=== PATIENT | male | born 1960 | race Caucasian/White ===

== ENCOUNTER 2023-04-17 06:21 | Day surgery (SDC) | payer OTHER ==
[~2023-04-17] VITALS: Ht 180.3 cm; Wt 140.6 kg
[2023-04-17] MEDS ORDERED: diphenhydrAMINE 50 MG/ML VIAL ONE (07:29)
[2023-04-17] MEDS ORDERED: fentaNYL citrate 0.05 MG/ML VIAL ONE (07:30)
[2023-04-17] MEDS ORDERED: LIDOCAINE 2% 100 MG/5 ML UJET TP ONE (07:30)
[2023-04-17] MEDS ORDERED: MIDAZOLAM 5 MG/5 ML VIAL ONE (07:30)
[2023-04-17] MEDS ORDERED: MIDAZOLAM 2 MG/2 ML VIAL IV ONE (08:15)
[2023-04-17] MEDS ORDERED: fentaNYL citrate 0.05 MG/ML VIAL IVP ONE (08:15)
[2023-04-17] MEDS ORDERED: diphenhydrAMINE 50 MG/ML VIAL IVP ONE (08:15)
== END 2023-04-17 08:36 | disposition home or self-care (01) ==
LOC: MOR 06:21 → MMU 06:44 → MOR 08:36
PROVIDERS: ATTEND Internal Medicine Gastroenterology
DX: Z12.11 Encounter for screening for malignant neoplasm of colon (principal); K57.92 Diverticulitis of intestine, part unspecified, without perforation or abscess without bleeding; Z80.0 Family history of malignant neoplasm of digestive organs; I10 Essential (primary) hypertension; E11.9 Type 2 diabetes mellitus without complications; E66.9 Obesity, unspecified; Z68.41 Body mass index [BMI] 40.0-44.9, adult; M19.90 Unspecified osteoarthritis, unspecified site; Z79.84 Long term (current) use of oral hypoglycemic drugs; Z79.899 Other long term (current) drug therapy
CPT/HCPCS: 45378; 82948; J1200; J2250; J3010

== ENCOUNTER 2023-08-20 11:27 | Emergency (ER) | payer OTHER ==
[~2023-08-20] VITALS: Ht 180.3 cm; Wt 155.6 kg
[~2023-08-20 11:27] MED LIST: CIPR500T4 PO; LOSA25TA43 PO; METF-346 PO; METR-435 PO; TRAM50TA3 PO
[2023-08-20 11:47] VITALS: BP 157/101; PULSE 90; RESP 20; TEMP 97.3; O2SAT 99
[2023-08-20] MEDS ORDERED: KETOROLAC 30 MG/ML VIAL IM ONE (12:20)
[2023-08-20] MEDS ORDERED: IBUP-2213 PO (13:05)
== END 2023-08-20 13:15 | disposition home or self-care (01) ==
LOC: MED 11:27
DX: S86.911A Strain of unspecified muscle(s) and tendon(s) at lower leg level, right leg, initial encounter (principal); Z79.899 Other long term (current) drug therapy; Z79.1 Long term (current) use of non-steroidal anti-inflammatories (NSAID); Z79.2 Long term (current) use of antibiotics; X58.XXXA Exposure to other specified factors, initial encounter; Y92.89 Other specified places as the place of occurrence of the external cause; Y93.89 Activity, other specified; Y99.8 Other external cause status
CPT/HCPCS: 29515; 73590; 96372; 99283; J1885

== ENCOUNTER 2023-10-15 07:13 | Emergency (ER) | payer OTHER ==
[~2023-10-15] VITALS: Ht 177.8 cm; Wt 136.1 kg
[~2023-10-15 07:13] MED LIST changes: +IBUP-2213 PO
[2023-10-15 07:20] VITALS: BP 133/75; PULSE 101; RESP 18; TEMP 98.1; O2SAT 99
[2023-10-15] MEDS: ONDANSETRON 4 MG/2 ML VIAL IVP ONE (07:51)
[2023-10-15] MEDS: NACL 0.9% 1,000 ML IV ONE (07:53)
[2023-10-15 07:57] LABS: BASOPHILS # (AUTO) 0.1 K/uL (0.00-0.22); BASOPHILS % (AUTO) 0.8 % (0.0-2.0); EOSINOPHILS # (AUTO) 0.3 K/uL (0-0.4); EOSINOPHILS % (AUTO) 3.6 % (0.0-4.0); HEMATOCRIT 40.1 % (36-52); HEMOGLOBIN 13.7 g/dL (12.0-18.0); LYMPHOCYTES # (AUTO) 3.3 K/uL (2.0-11.5); LYMPHOCYTES % (AUTO) 34.3 % (20.5-51.1); MEAN CORPUSCULAR HEMOGLOBIN 31 pg (27-31); MEAN CORPUSCULAR HGB CONC 34 g/dL (33-37); MEAN CORPUSCULAR VOLUME 91.8 fL (80-94); MONOCYTES # (AUTO) 1.2 K/uL (0.8-1.0); MONOCYTES % (AUTO) 12.3 % (1.7-9.3); NEUTROPHILS # (AUTO) 4.7 K/uL (1.8-7.7); PLATELET COUNT (AUTO) 275 K/uL (140-450); RED BLOOD CELL COUNT(AUTO) 4.37 MIL/uL (4.20-6.10); RED CELL DISTRIBUTION WIDTH 14.1 % (11.6-13.7); WHITE BLOOD COUNT (AUTO) 9.7 K/uL (4.8-10.8)
[2023-10-15 08:07] LABS: ANION GAP 11.8 (8-16); CALCIUM 9.2 mg/dL (8.5-10.1); CARBON DIOXIDE 27.7 mmol/L (21-32); CREATININE 0.7 mg/dL (0.6-1.3); POTASSIUM 3.5 mmol/L (3.5-5.1)
[2023-10-15 08:17] LABS: ALANINE AMINOTRANSFERASE 79 U/L (12-78); ALBUMIN 3.1 g/dL (3.4-5.0); ALKALINE PHOSPHATASE 3 U/L (50-136); ASPARTATE AMINOTRANSFERASE 39 U/L (15-37); BILIRUBIN,DIRECT 0.1 mg/dL (0.0-0.3); LIPASE 22 U/L (16-77); TOTAL BILIRUBIN 0.5 mg/dL (0.0-1.0); TOTAL PROTEIN, SERUM 7.8 g/dL (6.4-8.2)
[2023-10-15 09:05] LABS: FLU A ANTIGEN negative (NEGATIVE)
[2023-10-15 09:06] LABS: FLU B ANTIGEN negative (NEGATIVE)
[2023-10-15 10:09] LABS: APPEARANCE,URINE CLEAR (CLEAR); BILIRUBIN,URINE 1+ (NEGATIVE); BLOOD, URINE NEGATIVE (NEGATIVE); COLOR,URINE YELLOW (YELLOW); LEUKOCYTE ESTERASE ,URINE NEGATIVE (NEGATIVE); NITRITE, URINE NEGATIVE (NEGATIVE); PROTEIN,URINE NEGATIVE (NEGATIVE); UGLUCOSE NEGATIVE (NEGATIVE); UROBILINOGEN,URINE 0.2 EU/dL (0.2 - 1)
[2023-10-15 10:25] LABS: BACTERIA,URINE 0-2 /HPF (None Seen); MUCUS,URINE 2+ /LPF (None Seen); RBC,URINE 0-5 /HPF (0-5); SQUAMOUS EPITHELIAL CELL,UR 0-3 (FEW) /LPF (0-3 (FEW)); WBC,URINE 0-5 /HPF (0-5)
[2023-10-15 10:27] LABS: ICTOTEST NEGATIVE (NEGATIVE)
[2023-10-15] MEDS ORDERED: ONDA-188 SL (10:38)
[2023-10-15 10:52] VITALS: BP 127/79; PULSE 88; RESP 17; TEMP 98.1; O2SAT 95
== END 2023-10-15 10:52 | disposition home or self-care (01) ==
LOC: MED 07:13
DX: R53.1 Weakness (principal); R11.2 Nausea with vomiting, unspecified; R19.7 Diarrhea, unspecified; R51.9 Headache, unspecified; R10.84 Generalized abdominal pain; R06.02 Shortness of breath; T38.3X5A Adverse effect of insulin and oral hypoglycemic [antidiabetic] drugs, initial encounter; Z20.822 Contact with and (suspected) exposure to COVID-19; E11.9 Type 2 diabetes mellitus without complications; I10 Essential (primary) hypertension; Z79.899 Other long term (current) drug therapy; Y92.89 Other specified places as the place of occurrence of the external cause
CPT/HCPCS: 36415; 71045; 80048; 80076; 81001; 82948; 83690; 83880; 84484; 85025; 87426; 87804; 93005; 96361; 96374; 99285; J2405; J7030

== ENCOUNTER 2024-04-26 08:18 | Emergency (ER) | payer OTHER ==
[~2024-04-26] VITALS: Ht 177.8 cm; Wt 136.1 kg
[~2024-04-26 08:18] MED LIST changes: +ONDA-188 SL
[2024-04-26 08:33] VITALS: BP 112/82; PULSE 144; RESP 22; TEMP 99
[2024-04-26] MEDS ORDERED: KETOROLAC 30 MG/ML VIAL ONE (08:57)
[2024-04-26 09:15] LABS: BASOPHILS % (AUTO) 0.2 % (0.0-2.0); EOSINOPHILS # (AUTO) 0.1 K/uL (0-0.4); EOSINOPHILS % (AUTO) 1.1 % (0.0-4.0); HEMATOCRIT 46.1 % (36-52); HEMOGLOBIN 15.2 g/dL (12.0-18.0); LYMPHOCYTES # (AUTO) 0.9 K/uL (2.0-11.5); LYMPHOCYTES % (AUTO) 8.1 % (20.5-51.1); MEAN CORPUSCULAR HEMOGLOBIN 30 pg (27-31); MEAN CORPUSCULAR HGB CONC 33 g/dL (33-37); MEAN CORPUSCULAR VOLUME 90.8 fL (80-94); MONOCYTES # (AUTO) 0.5 K/uL (0.8-1.0); MONOCYTES % (AUTO) 4.5 % (1.7-9.3); NEUTROPHILS # (AUTO) 9.7 K/uL (1.8-7.7); NEUTROPHILS % (AUTO) 86.1 % (42.2-75.2); PLATELET COUNT (AUTO) 194 K/uL (140-450); RED BLOOD CELL COUNT(AUTO) 5.07 MIL/uL (4.20-6.10); RED CELL DISTRIBUTION WIDTH 15.6 % (11.6-13.7); WHITE BLOOD COUNT (AUTO) 11.3 K/uL (4.8-10.8)
[2024-04-26] MEDS: NACL 0.9% 2,000 ML IV ONE (09:22)
[2024-04-26] MEDS: KETOROLAC 30 MG/ML VIAL IVP ONE (09:24)
[2024-04-26] MEDS: PROCHLORPERAZINE 10 MG/2 ML VIAL IVP ONE (09:27)
[2024-04-26 09:46] LABS: ANION GAP 14.3 (8-16); CALCIUM 8.7 mg/dL (8.5-10.1); CREATININE 1.1 mg/dL (0.6-1.3); POTASSIUM 3.3 mmol/L (3.5-5.1)
[2024-04-26 09:55] LABS: ALANINE AMINOTRANSFERASE 49 U/L (12-78); ALBUMIN 3.4 g/dL (3.4-5.0); ALKALINE PHOSPHATASE 58 U/L (50-136); ASPARTATE AMINOTRANSFERASE 22 U/L (15-37); BILIRUBIN,DIRECT 0.2 mg/dL (0.0-0.3); LIPASE 28 U/L (16-77); TOTAL BILIRUBIN 0.8 mg/dL (0.0-1.0); TOTAL PROTEIN, SERUM 6.8 g/dL (6.4-8.2)
[2024-04-26 10:01] LABS: FLU A ANTIGEN negative (NEGATIVE); FLU B ANTIGEN NEGATIVE (NEGATIVE)
[2024-04-26] MEDS: ACETAMINOPHEN EXTRA STRENGTH 500 MG TAB PO ONE (10:07)
[2024-04-26] MEDS: POTASSIUM CHLORIDE 10 MEQ TABER PO ONE (10:08)
[2024-04-26 10:13] LABS: LACTIC ACID 2.6 mmol/L (0.4-2.0)
[2024-04-26 11:00] LABS: APPEARANCE,URINE CLEAR (CLEAR); BILIRUBIN,URINE NEGATIVE (NEGATIVE); BLOOD, URINE NEGATIVE (NEGATIVE); COLOR,URINE YELLOW (YELLOW); LEUKOCYTE ESTERASE ,URINE NEGATIVE (NEGATIVE); NITRITE, URINE NEGATIVE (NEGATIVE); PROTEIN,URINE NEGATIVE (NEGATIVE); UGLUCOSE NEGATIVE (NEGATIVE); UROBILINOGEN,URINE 0.2 EU/dL (0.2 - 1)
[2024-04-26 12:00] VITALS: BP 114/54; PULSE 110; RESP 22; TEMP 99; O2SAT 97
[2024-04-26] MEDS ORDERED: IBUP-2213 PO (14:06)
[2024-04-26] MEDS ORDERED: ONDA-188 PO (14:06)
== END 2024-04-26 14:32 | disposition home or self-care (01) ==
LOC: MED 08:18
DX: B34.9 Viral infection, unspecified (principal); E87.20 Acidosis, unspecified; E86.0 Dehydration; E87.6 Hypokalemia; R51.9 Headache, unspecified; R11.2 Nausea with vomiting, unspecified; Z20.822 Contact with and (suspected) exposure to COVID-19; E11.9 Type 2 diabetes mellitus without complications; I10 Essential (primary) hypertension; Z79.899 Other long term (current) drug therapy
CPT/HCPCS: 36415; 70450; 80048; 80076; 81003; 82948; 83605; 83690; 84484; 85025; 87426; 87804; 93005; 96361; 96374; 96375; 99291; J0780; J1885; J7030